=== PATIENT | female | born 1975 | race Caucasian/White ===

== ENCOUNTER 2017-01-08 00:22 | Inpatient (IN) | payer OTHER ==
[~2017-01-08] VITALS: Ht 170.2 cm; Wt 66.5 kg
[2017-01-08] VITALS (7 sets, daily range): BP systolic 96–120; BP diastolic 63–89
[~2017-01-08 00:22] MED LIST: ALPRAZOLAM1 M3 PO; AMBIEN CR12.5 MG OR; ATIVAN1 MG PO; AUGMENTIN875 MG OR; BACTRIM DS1 TAB PO; COGENTIN1 M1 PO; CYMBALTA60 MG OR; CYMBALTA60 MG PO; DEPAKOTE125 MG OR; DIAZEPAM5 MG PO; DOXY-CAPS100 MG PO; FLEXERIL PO; FLUVOXAMINE MA150 MG PO; GABAPENTIN300 MG PO; GEODON40 MG PO; GEODON60 MG OR; GEODON80 MG PO; KLONOPIN1 MG OR; LAMICTAL150 M1 OR; LAMICTAL150 MG PO; LITHIUM CARB300 MG PO; LORTAB 1010 MG PO; LORTAB 5/3255 MG PO; LORTAB5 OR; LUNESTA3 MG PO; LUVOX; MEDDOSEPAK PO; MIRTAZAPINE15 MG PO; NIASPAN1000 ER; NYSTATIN100000 M1 MT; PERCOCET 5/325M1 TAB PO; PREMARIN0.625 MG OR; PROVENTIL HFA IN; SERTRALINE HCL100 MG PO; TORADOL PO; TRAMADOL HCL50 MG PO; TRAZODONE50 MG PO; VALIUM10 MG OR; VALIUM10 MG PO; VALIUM5 MG PO; WELLBUTRIN SR150 MG PO; WELLBUTRIN100 M1 OR; XANAX0.25 MG OR; [UNRECOGNIZED DRUG - REMARK]; lithium PO
[2017-01-08 01:07] LABS: URINE BILIRUBIN - DIPSTICK NEGATIVE (NEGATIVE); URINE BLOOD DIPSTICK TRACE-INTACT (NEGATIVE); URINE CLARITY CLEAR; URINE COLOR YELLOW; URINE GLUCOSE - DIPSTICK NEGATIVE (NEGATIVE); URINE KETONE NEGATIVE (NEGATIVE); URINE LEUK ESTERASE NEGATIVE (NEGATIVE); URINE NITRITE - DIPSTICK NEGATIVE (Negative); URINE PH 5.5 (4.5-8.0); URINE PROTEIN - DIPSTICK NEGATIVE (NEG-TRACE); URINE SPECIFIC GRAVITY <=1.005; URINE UROBILINOGEN - DIPSTICK 0.2 E.U./dL (0.2)
[2017-01-08 01:10] LABS: HEMATOCRIT 40.1 % (37.0-47.0); HEMOGLOBIN 13.8 g/dl (12.0-16.0); IMMATURE GRANULOCYTES 0.2 % (0.0-1.0); MEAN CELL VOLUME 90.7 fL CALC (80.0-100.0); MEAN CORPUSCULAR HGB 31.2 pG CALC (26.0-32.0); MEAN CORPUSCULAR HGB CONC 34.4 g/L CALC (32.0-36.0); NEUT# 3.37 thou/uL (2.00-7.15); RED BLOOD COUNT 4.42 mill/uL (4.20-5.60); RED CELL DISTRI WIDTH 13.2 % (11.5-15.5)
[2017-01-08 01:10] LABS: COCAINE NEGATIVE (NEGATIVE)
[2017-01-08 01:11] LABS: BARBITURATES NEGATIVE (NEGATIVE); METHADONE NEGATIVE (NEGATIVE); OXCYCODONE NEGATIVE (NEGATIVE); TETRAHYDROCANNABIONOL NEGATIVE (NEGATIVE); TRICYLIC ANTIDEPRESSANTS NEGATIVE (NEGATIVE)
[2017-01-08 01:43] LABS: ALBUMIN 4.6 g/dL (3.2-5.0); ALKALINE PHOSPHATASE 92 u/l (38-126); ANION GAP 16 (6-22 (CALC)); BILIRUBIN, TOTAL 0.3 mg/dL (0.0-1.4); BUN 12 mg/dL (7-17); BUN/CREATININE RATIO 14 (12-20 (CALC)); CALCIUM 9.2 mg/dL (8.4-10.2); CARBON DIOXIDE 24 mmol/l (22-30); CHLORIDE 108 mmol/l (95-108); CREATININE 0.9 mg/dL (0.5-1.0); GFR > 60 ML/MIN (>=60 (CALC)); GFR FOR AFR.AMER. > 60 ML/MIN (>=60 (CALC)); GLUCOSE 86 mg/dL (65-105); POTASSIUM 3.5 mmol/l (3.5-5.1); SGOT/AST 26 u/l (14-36); SGPT/ALT 30 u/l (9-52); SODIUM 145 mmol/l (137-146); TOTAL PROTEIN 7.4 g/dL (6.3-8.2)
[2017-01-08 01:53] LABS: ETHYL ALCOHOL 0 mg/dl (0-30)
[2017-01-09 00:45] VITALS: BP 116/82
[2017-01-09 04:10] VITALS: BP 104/76
[2017-01-09 08:39] VITALS: BP 113/84
[2017-01-09 12:55] VITALS: BP 118/86
== END 2017-01-09 13:50 | DRG 918 ==
LOC: ED 00:22 → ED-I 03:17 → ED 03:46 → ICU 03:47
PROVIDERS: Emergency Medicine; ADMIT Internal Medicine; ATTEND Internal Medicine
DX: T42.4X2A Poisoning by benzodiazepines, intentional self-harm, initial encounter (principal); F33.2 Major depressive disorder, recurrent severe without psychotic features; F41.9 Anxiety disorder, unspecified; F17.210 Nicotine dependence, cigarettes, uncomplicated